=== PATIENT | female | born 1995 | race Two or more races ===

== ENCOUNTER 2020-07-06 14:37 | Emergency (ER) | payer MEDICAID, OTHER ==
[~2020-07-06] VITALS: Ht 165.1 cm; Wt 97.1 kg
[2020-07-06 17:12] VITALS: BP 150/95
== END 2020-07-06 17:47 | disposition home or self-care (01) ==
LOC: ER 14:37
DX: R51.9 Headache, unspecified (principal)
CPT/HCPCS: 70450